=== PATIENT | female | born 1990 | race Hispanic/Latino ===

== ENCOUNTER 2017-10-04 02:43 | Inpatient (IN) | payer MEDICAID, SELFPAY ==
[2017-10-04 03:22] LABS: #Basophils 0.1 thou/uL (0.0-0.2); #Eosinphils 0.6 thou/uL (0.0-0.7); #Lymphocytes 4.3 thou/uL (1.20-3.40); #Monocytes 0.7 thou/uL (0.11-0.59); #Neutrophils 6.6 thou/uL (1.40-6.50); %Basophils 0.6 % (0.0-1.0); %Eosinophils 5.2 % (0.0-10.0); %Lymphocytes 34.8 % (21.0-51.0); %Neutrophils 53.3 % (42.0-75.0); Hemoglobin 16.1 g/dL (12.0-16.0); Mean Corpuscular HGB CONC 33.5 g/dL (32.0-36.0); Mean Corpuscular Hemoglobin 30.6 pg (27.0-31.0); Mean Corpuscular Volume 91.4 fl (81.0-99.0); Platelet Count 212 thou/uL (130-400); RBC Distribution Width 12.7 % (11.5-14.5); Red Blood Cell (RBC) Count 5.27 mill/uL (4.20-5.40); White Blood Cell (WBC) Count 12.3 thou/uL (4.8-10.8)
[2017-10-04 03:24] LABS: Pregnancy Test - Urine (BHCG) Negative (Negative); Pregu Control Background? CLEAR/WHITE (CLR/WHITE); Pregu Control Bar Appear? YES (CONTROL BAR)
[2017-10-04 03:25] LABS: Bilirubin Negative (Negative); Blood, Urine Negative (Negative); Clarity CLEAR (Clear); Glucose, Urine (Dipstick) Negative (Negative); Leukocyte Trace (Negative); Nitrite Negative (Negative); Protein, Urine (Dipstick) Negative (Neg-Trace); Specific Gravity 1.028 (1.002-1.036); Specific Gravity, Urine 1.028 (1.002-1.036); Urobilinogen 0.2 mg/dL (0.2-1.0); pH, Urine 5.5 (5.0-9.0)
[2017-10-04 03:27] LABS: Bacteria/HPF 1+ HPF (None Seen); Hyaline Casts/LPF 0-3 HYALINE CAST LPF (0-3 Hyaline); Pathc Cast-AUWi Flag 0.27 (0-2.49)
[2017-10-04] MEDS ORDERED: Morphine 4 MG/ML VIAL ONE (03:38)
[2017-10-04 04:11] LABS: Albumin 4.1 g/dL (3.5-5.0)
[2017-10-04 04:12] LABS: Chloride 108 mmol/L (98-107); Potassium 4.2 mmol/L (3.5-5.1); Sodium 138 mmol/L (136-145)
[2017-10-04 04:13] LABS: Calcium 9.6 mg/dL (7.8-10.44)
[2017-10-04 04:14] LABS: Globulin 3.5 g/dL (2.4-3.5); Glucose 104 mg/dL (70-105); Protein, Total 7.6 g/dL (6.0-8.3)
[2017-10-04 04:15] LABS: Anion Gap 13 mmol/L (10-20); Carbon Dioxide 21 mmol/L (22-29)
[2017-10-04 04:16] LABS: Alkaline Phosphatase 91 U/L (40-150); Bilirubin, Total 0.3 mg/dL (0.2-1.2)
[2017-10-04 04:17] LABS: Calc. Creatinine Clearance 0 mL/min (70-130); Estimated GFR-MDRD Greater than 90
[2017-10-04 04:18] LABS: BUN (Urea Nitrogen) 16 mg/dL (7.0-18.7)
[2017-10-04 04:19] LABS: AST (SGOT) 17 U/L (5-34)
[2017-10-04 04:20] LABS: ALT (SGPT) 22 U/L (8-55); Lipase 23 U/L (8-78)
[2017-10-04] MEDS ORDERED: Famotidine/PF 20 mg/2ml Vial ONE (04:24)
[2017-10-04] MEDS ORDERED: cefOXitin 2 GM in Syringe 10 ML SLOW IVP SCH ×2 (04:45→14:00)
[2017-10-04] MEDS ORDERED: Ondansetron HCl/PF 4 MG/2 ML Vial IVP PRN (05:17)
[2017-10-04] MEDS ORDERED: Sodium Chloride 0.9% 1,000 ML IV SCH (05:17)
[2017-10-04] MEDS ORDERED: Morphine 4 MG/ML VIAL IV PRN ×2 (05:17→05:18)
[2017-10-04] MEDS ORDERED: Ondansetron ODT 4 MG TAB SL PRN (05:17)
[2017-10-04 06:08] VITALS: BMI 41.1
--- NOTE | 2017-10-04 08:05 | ULT ---
PRELIMINARY REPORT/[facility]/EMERGENCY AFTER HOURS PROCEDURE: EXAM: US Abdomen Limited, Right Upper Quadrant EXAM DATE/TIME: Exam ordered 10/04/2017 3:20 AM CLINICAL HISTORY: 27 years old, female; Pain and signs and symptoms; Nausea and vomiting and other: Diarrhea; Abdominal pain; Localized; Right upper quadrant (ruq); Patient HX: Ruq pain worse after eating TECHNIQUE: Real-time ultrasound of the right upper quadrant with image documentation. COMPARISON: No relevant prior studies available. FINDINGS: Liver: Hepatic steatosis. No intrahepatic bile duct dilation. Gallbladder: Wall echo shadow complex indicating gallbladder full of stones. Sonographic Borjas sign reported as positive. No gallbladder wall thickening or pericholecystic fluid. Common bile duct: Unremarkable as visualized. No stones. No dilation. Pancreas: Unremarkable as visualized. Right kidney: Unremarkable. No stones. No solid mass. No hydronephrosis. IMPRESSION: Cholelithiasis. Despite positive sonographic Borjas's sign, there is no wall thickening or pericholec ystic fluid to indicate acute cholecystitis. Thank you for allowing us to participate in the care of your patient. Dictated and Authenticated by: Toño Espinoza MD 10/04/2017 3:58 AM Central Time ([place] & [place]) FINAL REPORT EXAM: GALLBLADDER ULTRASOUND HISTORY: Abdominal pain. COMPARISON: None. TECHNIQUE: Utilizing a multi-Hertz transducer, sonographic imaging of the right upper quadrant is performed in t he longitudinal and transverse plane. FINDINGS: This report is in agreement with the report by [facility]. There is sonographic evidence of cholelithiasis without definite sonographic evidence of cholecystitis. Product Development Worker reports a positive Borjas's sign ; there is no evidence of pericholecystic fluid or gallbladder wall thickening. Consider HIDA scan f or better evaluation. There is evidence of hepatosteatosis with a coarsened/heterogeneous echotextur e of the liver. Limited evaluation of the common bile duct. Visualized portion of the common bile d uct appears to be within normal limits. POS: [facility]
[2017-10-04] MEDS: Sodium Chloride 0.9% 1,000 ML IV SCH ×2 (13:03→19:40)
[2017-10-04] MEDS ORDERED: Fentanyl 100 MCG/2 ML VIAL ONE ×3 (13:37→15:53)
--- NOTE | 2017-10-04 13:57 | HP ---
DATE OF ADMISSION: 10/04/2017. CHIEF COMPLAINT: Right upper quadrant abdominal pain with nausea, leukocytosis and cholelithiasis. HISTORY OF PRESENT ILLNESS: Patient is a 27-year-old obese female. She presented to the em ergency room last night with a 24-hour history of progressive right upper quadrant abdominal pain rad iating through to the back. She was nauseated, but did not vomit. She was seen in the emergency nona and underwent radiological and laboratory studies. Her CBC revealed an elevated white blood cell c ount of 12.3 with normal hemoglobin. Her liver function tests as well as lipase were entirely normal . Gallbladder ultrasound revealed numerous gallstones, but there is no definite evidence of cholecys titis. PAST MEDICAL HISTORY: Unremarkable. She was admitted for urinary tract infection in 03/2017. PAST SURGICAL HISTORY: None. CURRENT MEDICATIONS: None. ALLERGIES: No known drug allergies. PERSONAL AND SOCIAL HISTORY: She does not smoke nor does she drink alcohol. She is with 4 children. 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 She lives in [place]. REVIEW OF SYSTEMS: Otherwise, unremarkable. FAMILY HISTORY: Noncontributory. PHYSICAL EXAMINATION: VITAL SIGNS: Her temperature is 97.9, pulse 81, blood pressure 106/70. GENERAL: She is a well-developed, well-nourished, obese female resting in bed in no acute d istress, but she is alert and oriented x3. HEENT: Unremarkable. NECK: Supple, without mass or tenderness. LUNGS: Clear to auscultation throughout. CARDIAC: Regular rate and rhythm without murmur. ABDOMEN: Obese but soft. She has focal right upper quadrant tenderness with mild guarding. EXTREMITIES: Unremarkable. ASSESSMENT: Patient with symptomatic cholelithiasis/cholecystitis. PLAN: Laparoscopic cholecystectomy. I have discussed the operation in detail with the patient as we ll as potential risks. She understands and agrees to proceed with surgery at this time.
[2017-10-04] MEDS ORDERED: Bupivacaine/Epinephrine 0.25% 30 ML VIAL ONE (14:15)
[2017-10-04] MEDS ORDERED: cefOXitin 2 GM VIAL ONE (14:28)
[2017-10-04] MEDS ORDERED: Succinylcholine Chloride 20 MG/ML 10 ml SYRINGE FS ONE (17:00)
[2017-10-04] MEDS ORDERED: Lidocaine 1% PF 5 ML VIAL ONE (17:00)
[2017-10-04] MEDS ORDERED: Propofol 200 MG/20 ML VIAL ONE (17:00)
[2017-10-04] MEDS ORDERED: Glycopyrrolate 0.2 MG/ML 5 ML SYRINGE ONE (17:00)
[2017-10-04] MEDS ORDERED: Ondansetron HCl/PF 4 MG/2 ML Vial SLOW IVP PRN (19:01)
[2017-10-04] MEDS ORDERED: HYDROcodone/Acetaminophen 7.5/325 mg Tablet PO PRN ×2 (19:02)
[2017-10-04] MEDS ORDERED: Ondansetron ODT 4 MG TAB PO PRN (19:02)
[2017-10-04 21:07] VITALS: TEMP 98
[2017-10-04 22:18] VITALS: BP 105/74
--- NOTE | 2017-10-05 15:14 | OP ---
DATE OF PROCEDURE: 10/04/2017 SURGEON: Jorge Bates M.D. PREOPERATIVE DIAGNOSIS: Symptomatic cholelithiasis with cholecystitis. POSTOPERATIVE DIAGNOSES: Symptomatic cholelithiasis with cholecystitis. OPERATION PERFORMED: Laparoscopic cholecystectomy. ANESTHESIA: General endotracheal. INDICATIONS: The patient is a 27-year-old morbidly obese female. She presents with acute o nset of right upper quadrant abdominal pain. She has been noted to have extensive cholelithiasis for at least 6 months. Her liver function tests were all within normal limits. She was taken to the op erating room at this time for laparoscopic cholecystectomy. PROCEDURE IN DETAIL: Informed consent was obtained. The patient was taken to the operating room whe re general endotracheal anesthesia was obtained with the patient in the supine position. The abdomen was prepped with Betadine and draped in the usual sterile fashion. Quarter percent Marcaine with ep inephrine was infiltrated below the umbilicus and a 10 mm infraumbilical incision was created. A Lonnie ess needle was passed through this incision into the peritoneal cavity. A pneumoperitoneum was estab lished using carbon dioxide up to a pressure of 15 mmHg. Local anesthetic was infiltrated and three additional 5 mm right upper quadrant incisions were created. Through the mid incision, a 5 mm port w as passed into the peritoneal cavity. The camera was passed through this port and under direct visio n, an 11 port is passed through the infraumbilical incision. The camera was replaced through this po rt, and under direct vision, two additional 5 mm ports were passed through the incisions already cre ated. The gallbladder was grasped and retracted in a cephalad direction. Minimal adhesions were bluntly st ripped away from the apex of the gallbladder, and the apex was retracted laterally and inferiorly. C areful dissection was carried out to the apex of the gallbladder to identify the cystic duct and cyst ic artery. These were each carefully dissected circumferentially. The duct was of normal caliber. Both the duct and the artery were divided between clips leaving two on the side to remain within the abdomen. The gallbladder was then dissected out of the gallbladder fossa using electrocautery and re moved through the infraumbilical port site. The fascia was closed with 0 Vicryl suture and a GraNee needle. The right upper quadrant was inspected and irrigated. All irrigant was aspirated. All port s and instruments were removed under direct vision. Pneumoperitoneum was carefully evacuated. Addit ional local anesthetic was infiltrated into each port site. The skin edges were approximated with 4- 0 Monocryl subcuticular sutures, and Dermabond was placed externally. There were no complications. The patient tolerated the procedure well and was taken to the Recovery Room in stable condition. FINDINGS: The patient's gallbladder was acutely distended, but with minimal pericholecystic inflamma tion. The duct was small and noninflamed and a cholangiogram was not obtained. Her periumbilical po rt was placed in the supraumbilical location secondary to her obesity. The skin incision had to be e nlarged more than typical secondary to extensive amount of cholelithiasis. There were no complicatio ns with the operation. Blood loss was negligible. Hemostasis was meticulous. The patient was taken to recovery room in stable condition.
== END 2017-10-04 20:05 | disposition home or self-care (01) | DRG 418 ==
LOC: ERS 02:43 → SURG A 05:13
PROVIDERS: ADMIT Specialist; ATTEND Specialist
PROC: 0FT44ZZ Resection of Gallbladder, Percutaneous Endoscopic Approach (ICD-10-PCS; principal; 2017-10-04)
DX: K80.10 Calculus of gallbladder with chronic cholecystitis without obstruction (principal); E66.9 Obesity, unspecified; Z68.41 Body mass index [BMI] 40.0-44.9, adult
CPT/HCPCS: 36415; 76705; 80053; 81003; 81015; 81025; 83690; 85025; 88304; 96374; 96375; A4216; J0694; J2001; J2270; J2405; J2704; J3010; S0028

== ENCOUNTER 2017-10-19 22:56 | Emergency (ER) | payer MEDICAID, SELFPAY ==
[2017-10-20] MEDS ORDERED: Sulfameth/Trimethoprim DS 800-160mg TAB ONE (00:48)
== END 2017-10-20 00:50 | disposition home or self-care (01) ==
LOC: ERS 22:56
DX: T81.4XXA Infection following a procedure, initial encounter (principal)
CPT/HCPCS: 99283

== ENCOUNTER 2018-02-12 20:14 | Emergency (ER) | payer MEDICAID, OTHER ==
[2018-02-12 20:50] LABS: Bilirubin Small (Negative); Blood, Urine Negative (Negative); Clarity CLEAR (Clear); Glucose, Urine (Dipstick) Negative (Negative); Leukocyte Trace (Negative); Nitrite Negative (Negative); Protein, Urine (Dipstick) 30 mg/dL (Neg-Trace); Specific Gravity, Urine 1.033 (1.002-1.036)
[2018-02-12 20:51] LABS: Bacteria/HPF 1+ HPF (None Seen); Hyaline Casts/LPF 0-3 HYALINE CAST LPF (0-3 Hyaline); Pathc Cast-AUWi Flag 0.87 (0-2.49)
[2018-02-12] MEDS ORDERED: Metoclopramide HCl 10 MG/2 ML VIAL ONE (22:56)
[2018-02-12] MEDS ORDERED: diphenhydrAMINE 50 MG/ML VIAL ONE (22:56)
[2018-02-12] MEDS ORDERED: Acetaminophen 500 MG TAB ONE (22:56)
[2018-02-12 23:08] LABS: Pregu Control Background? CLEAR/WHITE (CLR/WHITE); Pregu Control Bar Appear? YES (CONTROL BAR); Specific Gravity 1.033 (1.002-1.036)
[2018-02-12 23:09] LABS: Pregnancy Test - Urine (BHCG) Negative (Negative)
[2018-02-12 23:12] LABS: #Basophils 0.1 thou/uL (0.0-0.2); #Eosinphils 0.4 thou/uL (0.0-0.7); #Lymphocytes 2.7 thou/uL (1.20-3.40); #Monocytes 0.5 thou/uL (0.11-0.59); #Neutrophils 6.5 thou/uL (1.40-6.50); %Basophils 0.7 % (0.0-1.0); %Eosinophils 3.7 % (0.0-10.0); %Lymphocytes 26.4 % (21.0-51.0); %Monocytes 5.2 % (0.0-10.0); Mean Corpuscular HGB CONC 33.6 g/dL (32.0-36.0); Mean Corpuscular Hemoglobin 30.2 pg (27.0-31.0); Mean Corpuscular Volume 89.8 fl (81.0-99.0); Mean Platelet Volume 8.3 fL (7.4-10.4); Platelet Count 291 thou/uL (130-400); RBC Distribution Width 12.3 % (11.5-14.5); Red Blood Cell (RBC) Count 5.31 mill/uL (4.20-5.40); White Blood Cell (WBC) Count 10.2 thou/uL (4.8-10.8)
--- NOTE | 2018-02-12 23:36 | CT ---
CT OF BRAIN PERFORMED WITHOUT CONTRAST ENHANCEMENT: 02/12/18 HISTORY: Headache. The ventricular and cisternal system is within normal limits. No signs of intracerebral hemorrhage o r extra-axial fluid collections. The mastoid air cells and visualized sinuses are clear. IMPRESSION: No acute intracranial abnormalities. POS: [facility]
[2018-02-12 23:57] LABS: ALT (SGPT) 21 U/L (8-55); AST (SGOT) 20 U/L (5-34); Albumin 4.3 g/dL (3.5-5.0); Alkaline Phosphatase 106 U/L (40-150); Anion Gap 15 mmol/L (10-20); BUN (Urea Nitrogen) 9 mg/dL (7.0-18.7); Bilirubin, Total 0.9 mg/dL (0.2-1.2); Calc. Creatinine Clearance 0 mL/min (70-130); Calcium 9.5 mg/dL (7.8-10.44); Carbon Dioxide 24 mmol/L (22-29); Chloride 104 mmol/L (98-107); Estimated GFR-MDRD Greater than 90; Globulin 3.7 g/dL (2.4-3.5); Glucose 92 mg/dL (70-105); Potassium 3.6 mmol/L (3.5-5.1); Sodium 139 mmol/L (136-145)
[2018-02-13] MEDS ORDERED: Haloperidol Lactate 5 MG/ML VIAL ONE
[2018-02-13] MEDS ORDERED: Dexamethasone 4 MG TAB ONE (00:02)
[2018-02-13] MEDS ORDERED: Dexamethasone 10 MG/ML VIAL ONE (00:03)
== END 2018-02-13 00:48 | disposition home or self-care (01) ==
LOC: ERS 20:14
DX: R51 Headache (principal); R20.2 Paresthesia of skin; R11.2 Nausea with vomiting, unspecified; R19.7 Diarrhea, unspecified
CPT/HCPCS: 70450; 80053; 81003; 81015; 81025; 85025; 93005; 96365; 96366; 96375; J1100; J1200; J1630; J2765; J8540

== ENCOUNTER 2019-02-04 03:00 | Emergency (ER) | payer OTHER ==
[2019-02-04 03:30] LABS: #Basophils 0.1 thou/uL (0.0-0.2); #Eosinphils 0.4 thou/uL (0.0-0.7); #Lymphocytes 4.7 thou/uL (1.20-3.40); #Monocytes 0.7 thou/uL (0.11-0.59); %Basophils 0.9 % (0.0-1.0); %Eosinophils 3.2 % (0.0-10.0); %Lymphocytes 33.4 % (21.0-51.0); %Monocytes 5.1 % (0.0-10.0); %Neutrophils 57.4 % (42.0-75.0); Hemoglobin 14.8 g/dL (12.0-16.0); Mean Corpuscular HGB CONC 33.4 g/dL (32.0-36.0); Mean Corpuscular Hemoglobin 30.1 pg (27.0-31.0); Mean Corpuscular Volume 90.1 fL (78.0-98.0); Platelet Count 292 thou/uL (130-400); RBC Distribution Width 12.5 % (11.5-14.5); Red Blood Cell (RBC) Count 4.92 mill/uL (4.20-5.40); White Blood Cell (WBC) Count 13.9 thou/uL (4.8-10.8)
[2019-02-04 03:46] LABS: ALT (SGPT) 23 U/L (8-55); AST (SGOT) 19 U/L (5-34); Albumin 4.1 g/dL (3.5-5.0); Alkaline Phosphatase 96 U/L (40-150); Anion Gap 13 mmol/L (10-20); BUN (Urea Nitrogen) 12 mg/dL (7.0-18.7); Bilirubin, Total 0.4 mg/dL (0.2-1.2); Calc. Creatinine Clearance 0 mL/min (70-130); Calcium 9.8 mg/dL (7.8-10.44); Carbon Dioxide 25 mmol/L (22-29); Chloride 109 mmol/L (98-107); Estimated GFR-MDRD 83; Globulin 3.3 g/dL (2.4-3.5); Glucose 112 mg/dL (70-105); Potassium 3.7 mmol/L (3.5-5.1); Protein, Total 7.4 g/dL (6.0-8.3); Sodium 143 mmol/L (136-145)
[2019-02-04] MEDS ORDERED: Ibuprofen 800 MG TAB ONE (04:40)
--- NOTE | 2019-02-04 07:37 | RAD ---
EXAM: Chest PA and lateral: HISTORY: Right-sided chest pain COMPARISON: None FINDINGS: Heart size:Within normal limits. Lungs:Clear of acute process. No confluent pneumonia, overt edema, pleural effusion, or other acute process. IMPRESSION: No significant acute intrathoracic disease.
== END 2019-02-04 04:49 | disposition home or self-care (01) ==
LOC: ERS 03:00
DX: R07.9 Chest pain, unspecified (principal)
CPT/HCPCS: 36415; 71046; 80053; 84484; 85025; 93005

== ENCOUNTER 2019-06-08 17:28 | Emergency (ER) | payer OTHER, SELFPAY ==
[2019-06-08] MEDS ORDERED: Ketorolac Tromethamine 30 MG/ML VIAL ONE (18:14)
[2019-06-08] MEDS ORDERED: Acetaminophen 500 MG TAB ONE (18:14)
[2019-06-08 18:59] LABS: Bilirubin Negative (Negative); Blood, Urine Negative (Negative); Clarity Clear (Clear); Glucose, Urine (Dipstick) Normal (Negative); Leukocyte Negative Leu/uL (Negative); Nitrite Negative (Negative); Protein, Urine (Dipstick) 20 mg/dL (Neg-Trace); Urobilinogen Normal mg/dL (Less than 2)
== END 2019-06-08 20:12 | disposition home or self-care (01) ==
LOC: ERS 17:28
DX: M54.5 Low back pain (principal)
CPT/HCPCS: 81003; 96372; 99283; J1885

== ENCOUNTER 2021-04-02 15:36 | Emergency (ER) | payer SELFPAY ==
[2021-04-02 17:04] LABS: Bilirubin Negative (Negative); Blood, Urine Negative (Negative); Clarity Clear (Clear); Glucose, Urine (Dipstick) Normal (Negative); Ketone, Urine Negative (Negative); Leukocyte Negative Leu/uL (Negative); Nitrite Negative (Negative); Protein, Urine (Dipstick) Negative (Neg-Trace); Specific Gravity, Urine 1.028 (1.002-1.036); Urobilinogen Normal mg/dL (Less than 2); pH, Urine 5.5 (5.0-9.0)
[2021-04-02 17:06] LABS: Pregnancy Test - Urine (BHCG) Negative (Negative); Pregu Control Background? CLEAR/WHITE (CLR/WHITE); Pregu Control Bar Appear? YES (CONTROL BAR); Specific Gravity 1.028 (1.002-1.036)
[2021-04-02] MEDS ORDERED: Acetaminophen 500 MG TAB ONE (17:39)
[2021-04-02] MEDS ORDERED: Aspirin Chewable 81 MG TAB ONE (17:39)
[2021-04-02 17:40] LABS: #Eosinphils 0.4 thou/uL (0.0-0.7); #Lymphocytes 4.2 thou/uL (1.20-3.40); #Monocytes 0.7 thou/uL (0.11-0.59); #Neutrophils 8.2 thou/uL (1.40-6.50); %Basophils 0.3 % (0.0-1.0); %Eosinophils 3.2 % (0.0-10.0); %Lymphocytes 30.7 % (21.0-51.0); %Monocytes 5.4 % (0.0-10.0); %Neutrophils 60.4 % (42.0-75.0); Hemoglobin 15.2 g/dL (12.0-16.0); Mean Corpuscular Hemoglobin 30.1 pg (27.0-31.0); Mean Corpuscular Volume 91.1 fL (78.0-98.0); Platelet Count 315 thou/uL (130-400); RBC Distribution Width 12.4 % (11.5-14.5); Red Blood Cell (RBC) Count 5.05 mill/uL (4.20-5.40); White Blood Cell (WBC) Count 13.5 thou/uL (4.8-10.8)
[2021-04-02 18:27] LABS: ALT (SGPT) 33 U/L (8-55); AST (SGOT) 32 U/L (5-34); Albumin 4.1 g/dL (3.5-5.0); Alkaline Phosphatase 96 U/L (40-110); Anion Gap 14 mmol/L (10-20); BUN (Urea Nitrogen) 12 mg/dL (7.0-18.7); Bilirubin, Total 0.3 mg/dL (0.2-1.2); Calc. Creatinine Clearance 0 mL/min (70-130); Calcium 9.6 mg/dL (7.8-10.44); Carbon Dioxide 24 mmol/L (22-29); Chloride 104 mmol/L (98-107); Globulin 4.2 g/dL (2.4-3.5); Glucose 97 mg/dL (70-105); Lipase 22 U/L (8-78); Potassium 4.7 mmol/L (3.5-5.1); Protein, Total 8.3 g/dL (6.0-8.3); Sodium 137 mmol/L (136-145)
== END 2021-04-02 18:52 | disposition home or self-care (01) ==
LOC: ERS 15:36
DX: R10.11 Right upper quadrant pain (principal); D72.829 Elevated white blood cell count, unspecified; R10.816 Epigastric abdominal tenderness
CPT/HCPCS: 71046; 74176; 80053; 81003; 81025; 83690; 85025